=== PATIENT | female | born 1965 | race Two or more races ===

== ENCOUNTER 2024-06-09 16:28 | Emergency (ER) | payer OTHER ==
[~2024-06-09] VITALS: Ht 162.6 cm; Wt 67.6 kg
[~2024-06-09 16:28] MED LIST: ORPH100T PO; SEPTRA DS TABLE1 TAB PO
[2024-06-09] MEDS ORDERED: ZOVIRAX800 MG PO (18:40)
[2024-06-09] MEDS ORDERED: NEURONTIN300 MG PO (18:40)
[2024-06-09] MEDS ORDERED: KETO10TA2 PO (18:40)
== END 2024-06-09 19:24 | disposition home or self-care (01) ==
LOC: ER 16:30
DX: B02.9 Zoster without complications (principal); M85.88 Other specified disorders of bone density and structure, other site